=== PATIENT | male | born 1970 | race Two or more races ===

== ENCOUNTER 2016-04-08 09:24 | Emergency (ER) | payer MEDICAID ==
[~2016-04-08] VITALS: Ht 160 cm; Wt 77.1 kg
[~2016-04-08 09:24] MED LIST: AMOX-430 PO; ASCO500T9 PO; ASPI-869 PO; ATOR40TA PO; Acyclovir PO; Aspirin PO; CARV3.122 PO; Fluconazole PO; ISOS60TA4 PO; LACT1CAP72 PO; LEVO25TA9 PO; LISI2.5T2 PO; LISI5TAB45 PO; METO50TA7 PO; SEVE0.8P GT; SEVE800T PO; Zinc Sulfate PO
[2016-04-08 09:30] VITALS: BP 140/93
[2016-04-08] MEDS ORDERED: HYDROCODONE/APAP 10/325MG 1 EA TABLET ONE (09:42)
[2016-04-08] MEDS ORDERED: HYDROCODONE/APAP 10/325MG 1 EA TABLET PO ONE (10:00)
== END 2016-04-08 10:04 | disposition home or self-care (01) ==
LOC: ER 09:26
DX: N47.6 Balanoposthitis (principal); G89.29 Other chronic pain; M79.609 Pain in unspecified limb; I48.91 Unspecified atrial fibrillation; I12.0 Hypertensive chronic kidney disease with stage 5 chronic kidney disease or end stage renal disease; N18.6 End stage renal disease; Z79.82 Long term (current) use of aspirin; Z59.0 Homelessness; Z99.2 Dependence on renal dialysis
CPT/HCPCS: 99283; A4606; Z7610

== ENCOUNTER 2016-04-16 18:49 | Inpatient (IN) | payer MEDICAID ==
[~2016-04-16] VITALS: Ht 162.6 cm; Wt 73.0 kg
[2016-04-16] MEDS ORDERED: IV NS 0.9% 1,000 ML BAG IV ONE (19:30)
[2016-04-16] MEDS ORDERED: ONDANSETRON HCL/PF 4 MG/2 ML VIAL IVP ONE (19:30)
[2016-04-16] MEDS ORDERED: CEFTRIAXONE 1 G in IV D5W 50 ML IV ONE (19:30)
[2016-04-16] MEDS ORDERED: MORPHINE SULFATE INJ 2 MG/ML DISP.SYRIN IV ONE (19:30)
[2016-04-16 19:40] LABS: BASOPHILS # (AUTO) 0.2 /CMM (0.0-0.2); BASOPHILS % (AUTO) 3.3 % (0.0-2.0); DIFF TOTAL % 100 %; EOSINOPHILS # (AUTO) 0.1 /CMM (0.0-0.7); EOSINOPHILS % (AUTO) 1.2 % (0.0-6.0); HEMATOCRIT 37 % (39-51); HEMOGLOBIN 12.4 g/dL (13.5-17.5); LYMPHOCYTES # (AUTO) 0.7 /CMM (0.8-4.8); LYMPHOCYTES % (AUTO) 11.6 % (20.0-44.0); MEAN CORPUSCULAR HEMOGLOBIN 31 PG (26.0-33.0); MEAN CORPUSCULAR HGB CONC 33 g/dl (31.0-36.0); MEAN CORPUSCULAR VOLUME 94 fL (80-96); MONOCYTES # (AUTO) 0.5 /CMM (0.1-1.30); MONOCYTES % (AUTO) 9.1 % (2.0-12.0); NEUTROPHILS # (AUTO) 4.2 /CMM (1.8-8.9); NEUTROPHILS % (AUTO) 74.8 % (43.0-81.0); PLATELET COUNT (AUTO) 112 /CMM (150-450); RED BLOOD CELL COUNT(AUTO) 3.98 MIL/uL (4.5-6.0); WHITE BLOOD COUNT (AUTO) 5.7 K/uL (4.3-11.0)
[2016-04-16] MEDS ORDERED: IV NS 0.9% 1,000 ML ONE (19:40)
[2016-04-16] MEDS ORDERED: IV SET PRIMARY 1 EA INFUS.SET MC ONE (19:40)
[2016-04-16] MEDS ORDERED: MORPHINE SULFATE INJ 4 MG/ML DISP.SYRIN ONE (19:40)
[2016-04-16] MEDS ORDERED: IV SET PRIMARY PUMP SET 1 EA INFUS.SET MC ONE (19:40)
[2016-04-16] MEDS ORDERED: CEFTRIAXONE 1GM BAG (ER ONLY) 50 ML IV ONE (19:40)
[2016-04-16] MEDS ORDERED: ONDANSETRON HCL/PF 4 MG/2 ML VIAL ONE (19:40)
[2016-04-16 20:20] LABS: ALBUMIN 2.8 g/dL (3.4-5.0); BILIRUBIN,DIRECT 0.3 mg/dL (0.0-0.2); BILIRUBIN,TOTAL 0.7 mg/dL (0.2-1.0); CALCIUM, SERUM 9.9 mg/dL (8.5-10.1); CREATININE 7.1 mg/dL (0.6-1.3); INDIRECT BILIRUBIN 0.4 mg/dL (0.0-1.1); POTASSIUM 4.8 mmol/L (3.5-5.1); TOTAL PROTEIN, SERUM 6.8 g/dL (6.4-8.2)
[2016-04-16] MEDS ORDERED: MAGNESIUM HYDROXIDE 30 ML UDC PO PRN (20:30)
[2016-04-16] MEDS ORDERED: MAG HYDROX/AL HYDROX/SIMETH 30 ML UDC PO PRN (20:30)
[2016-04-16] MEDS ORDERED: ZOLPIDEM TARTRATE 5 MG TABLET PO PRN (20:30)
[2016-04-16] MEDS ORDERED: Z GUARD REMEDY 2 OZ OINT TP PRN (20:30)
[2016-04-16] MEDS ORDERED: [UNRECOGNIZED DRUG - OTHER] PO SCH (20:30)
[2016-04-16] MEDS ORDERED: ACETAMINOPHEN 325 MG TABLET PO PRN (20:30)
[2016-04-16] MEDS ORDERED: LINEZOLID RTU BAG 600 MG in PREMIX 1 EA IV ONE (21:00)
[2016-04-16] MEDS ORDERED: ACYCLOVIR PO SCH (21:00)
[2016-04-16 21:40] VITALS: BP 134/82
[2016-04-16] MEDS ORDERED: METOPROLOL SUCCINATE 50 MG TAB.SR.24H PO ONE (23:00)
[2016-04-16] MEDS ORDERED: PIPERACILLIN /TAZOBACTAM 3.375 G VIAL IV ONE (23:01)
[2016-04-16] MEDS ORDERED: IV D5W 50 ML IV ONE (23:03)
[2016-04-16] MEDS: METOPROLOL SUCCINATE 50 MG TAB.SR.24H PO SCH (23:09)
[2016-04-16] MEDS ORDERED: HYDROCODONE/APAP 5/325MG 1 EACH TABLET ONE (23:26)
[2016-04-16] MEDS ORDERED: IV NS 0.9% 250 ML IV ONE (23:41)
[2016-04-16] MEDS ORDERED: SECONDARY IV SET 1 EA INFUS.SET MC ONE (23:42)
[2016-04-16] MEDS: PIPERACILLIN /TAZOBACTAM 3.375 G in IV D5W 50 ML IV SCH (23:46)
[2016-04-17] MEDS: HYDROCODONE/APAP 5/325MG 1 EACH TABLET PO PRN ×2 (02:43→09:03)
[2016-04-17] MEDS ORDERED: IV D5W 50 ML IV ONE (04:17)
[2016-04-17] MEDS ORDERED: MORPHINE SULFATE INJ 2 MG/ML DISP.SYRIN ONE (04:17)
[2016-04-17] MEDS ORDERED: PIPERACILLIN /TAZOBACTAM 3.375 G VIAL IV ONE (04:17)
[2016-04-17] MEDS: MORPHINE SULFATE INJ 2 MG/ML DISP.SYRIN IV PRN ×4 (04:22→21:13)
[2016-04-17 04:39] VITALS: BP 98/85
[2016-04-17] MEDS: PIPERACILLIN /TAZOBACTAM 3.375 G in IV D5W 50 ML IV SCH ×3 (05:08→17:00)
[2016-04-17 07:01] LABS: BASOPHILS % (AUTO) 0.5 % (0.0-2.0); DIFF TOTAL % 100 %; EOSINOPHILS # (AUTO) 0.1 /CMM (0.0-0.7); EOSINOPHILS % (AUTO) 1.6 % (0.0-6.0); HEMATOCRIT 40 % (39-51); HEMOGLOBIN 13.1 g/dL (13.5-17.5); LYMPHOCYTES # (AUTO) 0.9 /CMM (0.8-4.8); MEAN CORPUSCULAR HEMOGLOBIN 31 PG (26.0-33.0); MEAN CORPUSCULAR HGB CONC 33 g/dl (31.0-36.0); MEAN CORPUSCULAR VOLUME 96 fL (80-96); MONOCYTES # (AUTO) 0.6 /CMM (0.1-1.30); MONOCYTES % (AUTO) 10.1 % (2.0-12.0); NEUTROPHILS # (AUTO) 4.4 /CMM (1.8-8.9); NEUTROPHILS % (AUTO) 72.8 % (43.0-81.0); PLATELET COUNT (AUTO) 141 /CMM (150-450); RED BLOOD CELL COUNT(AUTO) 4.19 MIL/uL (4.5-6.0); WHITE BLOOD COUNT (AUTO) 6.1 K/uL (4.3-11.0)
[2016-04-17 07:15] LABS: ALBUMIN 2.7 g/dL (3.4-5.0); BILIRUBIN,TOTAL 0.7 mg/dL (0.2-1.0); POTASSIUM 5.2 mmol/L (3.5-5.1); TOTAL PROTEIN, SERUM 6.7 g/dL (6.4-8.2)
[2016-04-17 07:17] LABS: CREATININE 7.6 mg/dL (0.6-1.3); PHOSPHORUS 8.2 mg/dL (2.5-4.9)
[2016-04-17 07:56] VITALS: BP 125/80
[2016-04-17] MEDS ORDERED: SEVELAMER CARBONATE 0.8 GM POWD.PACK GT SCH (08:00)
[2016-04-17] MEDS ORDERED: SEVELAMER CARBONATE 800 MG TABLET PO SCH (08:00)
[2016-04-17] MEDS ORDERED: LISINOPRIL (5MG) 5 MG TABLET PO SCH (09:00)
[2016-04-17] MEDS: ATORVASTATIN 40 MG TABLET PO SCH (09:00)
[2016-04-17] MEDS: ASPIRIN EC 325 MG TABLET.DR PO SCH (09:00)
[2016-04-17] MEDS: ISOSORBIDE MONONITRATE (30MG) 30 MG TAB.SR.24H PO SCH (09:00)
[2016-04-17] MEDS: LEVOTHYROXINE SODIUM 25 MCG TABLET PO SCH (09:00)
[2016-04-17] MEDS: LACTOBACILLUS RHAMNOSUS GG 1 EACH CAP.SPRINK PO SCH ×2 (09:00→16:59)
[2016-04-17] MEDS: ZINC SULFATE 220 MG CAPSULE PO SCH (09:00)
[2016-04-17] MEDS: PANTOPRAZOLE 40 MG TABLET.DR PO SCH (09:01)
[2016-04-17] MEDS: ASCORBIC ACID 500 MG TABLET PO SCH (09:01)
[2016-04-17] MEDS: LISINOPRIL (5MG) 5 MG TABLET PO SCH (09:02)
[2016-04-17] MEDS: CARVEDILOL 3.125 MG TABLET PO SCH ×2 (09:02→16:25)
[2016-04-17] MEDS: ASPIRIN 325 MG TABLET PO SCH (09:05)
[2016-04-17] MEDS: LINEZOLID RTU BAG 600 MG in PREMIX 1 EA IV SCH ×2 (10:04→21:02)
[2016-04-17] MEDS: ONDANSETRON HCL/PF 4 MG/2 ML VIAL IVP PRN (12:18)
[2016-04-17] MEDS: SEVELAMER CARBONATE 0.8 GM POWD.PACK PO SCH ×2 (12:19→16:59)
[2016-04-17] MEDS ORDERED: DOSE PER PHARMACY MICAFUNGIN 1 EA XX PRN (14:30)
[2016-04-17] MEDS ORDERED: SECONDARY IV SET 1 EA INFUS.SET MC ONE ×2 (15:57→21:05)
[2016-04-17] MEDS: MICAFUNGIN SODIUM 100 MG in IV NS 0.9% 100 ML IV SCH (16:00)
[2016-04-17 16:45] VITALS: BP 120/83
[2016-04-17 20:00] VITALS: BP 135/80
[2016-04-17] MEDS: METOPROLOL SUCCINATE 50 MG TAB.SR.24H PO SCH (21:02)
[2016-04-18] MEDS: PIPERACILLIN /TAZOBACTAM 3.375 G in IV D5W 50 ML IV SCH ×4 (00:17→17:52)
[2016-04-18] MEDS: MORPHINE SULFATE INJ 2 MG/ML DISP.SYRIN IV PRN ×4 (03:40→17:52)
[2016-04-18 06:52] LABS: BASOPHILS # (AUTO) 0.1 /CMM (0.0-0.2); BASOPHILS % (AUTO) 1.1 % (0.0-2.0); DIFF TOTAL % 100 %; EOSINOPHILS # (AUTO) 0.3 /CMM (0.0-0.7); EOSINOPHILS % (AUTO) 4.5 % (0.0-6.0); HEMATOCRIT 37 % (39-51); HEMOGLOBIN 12.4 g/dL (13.5-17.5); LYMPHOCYTES # (AUTO) 0.7 /CMM (0.8-4.8); LYMPHOCYTES % (AUTO) 11.2 % (20.0-44.0); MEAN CORPUSCULAR HEMOGLOBIN 31 PG (26.0-33.0); MEAN CORPUSCULAR HGB CONC 34 g/dl (31.0-36.0); MEAN CORPUSCULAR VOLUME 93 fL (80-96); MONOCYTES # (AUTO) 1.1 /CMM (0.1-1.30); MONOCYTES % (AUTO) 17.8 % (2.0-12.0); NEUTROPHILS # (AUTO) 4.1 /CMM (1.8-8.9); NEUTROPHILS % (AUTO) 65.4 % (43.0-81.0); PLATELET COUNT (AUTO) 121 /CMM (150-450); RED BLOOD CELL COUNT(AUTO) 3.96 MIL/uL (4.5-6.0); WHITE BLOOD COUNT (AUTO) 6.3 K/uL (4.3-11.0)
[2016-04-18 07:27] LABS: CALCIUM, SERUM 9.2 mg/dL (8.5-10.1); CREATININE 6.6 mg/dL (0.6-1.3); PHOSPHORUS 6.7 mg/dL (2.5-4.9); POTASSIUM 5.2 mmol/L (3.5-5.1)
[2016-04-18 07:49] LABS: ANISOCYTOSIS 1+; BAND % (MANUAL) 2 % (0.0-5.0); EOSINOPHILS % (MANUAL) 3 % (0-4); LYMPHOCYTES % (MANUAL) 14 % (16-48); PLATELET ESTIMATE DECREASED
[2016-04-18 07:50] LABS: HYPOCHROMASIA 1+; OVALOCYTES SLT
[2016-04-18 08:00] VITALS: BP 103/78
[2016-04-18] MEDS: LINEZOLID RTU BAG 600 MG in PREMIX 1 EA IV SCH (08:22)
[2016-04-18] MEDS: ATORVASTATIN 40 MG TABLET PO SCH (08:23)
[2016-04-18] MEDS: ASPIRIN EC 325 MG TABLET.DR PO SCH (08:23)
[2016-04-18] MEDS: SEVELAMER CARBONATE 0.8 GM POWD.PACK PO SCH ×3 (08:23→16:50)
[2016-04-18] MEDS: PANTOPRAZOLE 40 MG TABLET.DR PO SCH (08:23)
[2016-04-18] MEDS: LEVOTHYROXINE SODIUM 25 MCG TABLET PO SCH (08:23)
[2016-04-18] MEDS: ASCORBIC ACID 500 MG TABLET PO SCH (08:23)
[2016-04-18] MEDS: LACTOBACILLUS RHAMNOSUS GG 1 EACH CAP.SPRINK PO SCH ×2 (08:23→16:50)
[2016-04-18] MEDS: ZINC SULFATE 220 MG CAPSULE PO SCH (08:23)
[2016-04-18] MEDS: ONDANSETRON HCL/PF 4 MG/2 ML VIAL IVP PRN (08:24)
[2016-04-18] MEDS: CARVEDILOL 3.125 MG TABLET PO SCH ×2 (08:25→16:51)
[2016-04-18] MEDS: LISINOPRIL (5MG) 5 MG TABLET PO SCH (08:25)
[2016-04-18] MEDS: ISOSORBIDE MONONITRATE (30MG) 30 MG TAB.SR.24H PO SCH (08:25)
[2016-04-18] MEDS: ASPIRIN 325 MG TABLET PO SCH (08:26)
[2016-04-18 16:00] VITALS: BP 117/78
[2016-04-18] MEDS: MICAFUNGIN SODIUM 100 MG in IV NS 0.9% 100 ML IV SCH (16:50)
[2016-04-18 20:00] VITALS: BP 111/83
[2016-04-18] MEDS: LINEZOLID 600 MG TABLET PO SCH (21:15)
[2016-04-18] MEDS: METOPROLOL SUCCINATE 50 MG TAB.SR.24H PO SCH (21:15)
[2016-04-18] MEDS: CLOTRIMAZOLE 1% 15 GM TUBE TP SCH (21:16)
[2016-04-18] MEDS: HYDROCODONE/APAP 5/325MG 1 EACH TABLET PO PRN (21:21)
[2016-04-19] MEDS: PIPERACILLIN /TAZOBACTAM 3.375 G in IV D5W 50 ML IV SCH ×5 (00:41→23:49)
[2016-04-19] MEDS: MORPHINE SULFATE INJ 2 MG/ML DISP.SYRIN IV PRN ×4 (00:47→23:49)
[2016-04-19 07:17] LABS: CALCIUM, SERUM 8.7 mg/dL (8.5-10.1); PHOSPHORUS 7.4 mg/dL (2.5-4.9); POTASSIUM 5.1 mmol/L (3.5-5.1)
[2016-04-19 07:40] LABS: BASOPHILS % (AUTO) 0.8 % (0.0-2.0); DIFF TOTAL % 100 %; EOSINOPHILS # (AUTO) 0.2 /CMM (0.0-0.7); EOSINOPHILS % (AUTO) 4.1 % (0.0-6.0); HEMATOCRIT 37 % (39-51); HEMOGLOBIN 12.1 g/dL (13.5-17.5); LYMPHOCYTES # (AUTO) 0.7 /CMM (0.8-4.8); LYMPHOCYTES % (AUTO) 13.6 % (20.0-44.0); MEAN CORPUSCULAR HEMOGLOBIN 31 PG (26.0-33.0); MEAN CORPUSCULAR HGB CONC 33 g/dl (31.0-36.0); MEAN CORPUSCULAR VOLUME 94 fL (80-96); MONOCYTES # (AUTO) 0.9 /CMM (0.1-1.30); MONOCYTES % (AUTO) 16.9 % (2.0-12.0); NEUTROPHILS # (AUTO) 3.5 /CMM (1.8-8.9); NEUTROPHILS % (AUTO) 64.6 % (43.0-81.0); PLATELET COUNT (AUTO) 132 /CMM (150-450); WHITE BLOOD COUNT (AUTO) 5.4 K/uL (4.3-11.0)
[2016-04-19] MEDS: PANTOPRAZOLE 40 MG TABLET.DR PO SCH (07:54)
[2016-04-19] MEDS: ATORVASTATIN 40 MG TABLET PO SCH (07:54)
[2016-04-19] MEDS: ZINC SULFATE 220 MG CAPSULE PO SCH (07:54)
[2016-04-19] MEDS: SEVELAMER CARBONATE 0.8 GM POWD.PACK PO SCH ×3 (07:54→17:02)
[2016-04-19] MEDS: LINEZOLID 600 MG TABLET PO SCH ×2 (07:54→20:50)
[2016-04-19] MEDS: ASPIRIN EC 325 MG TABLET.DR PO SCH (07:54)
[2016-04-19] MEDS: ASCORBIC ACID 500 MG TABLET PO SCH (07:54)
[2016-04-19] MEDS: LEVOTHYROXINE SODIUM 25 MCG TABLET PO SCH (07:54)
[2016-04-19] MEDS: LACTOBACILLUS RHAMNOSUS GG 1 EACH CAP.SPRINK PO SCH ×2 (07:54→17:00)
[2016-04-19] MEDS: ASPIRIN 325 MG TABLET PO SCH (07:55)
[2016-04-19] MEDS: CARVEDILOL 3.125 MG TABLET PO SCH ×2 (07:55→17:00)
[2016-04-19] MEDS: LISINOPRIL (5MG) 5 MG TABLET PO SCH (07:56)
[2016-04-19] MEDS: CLOTRIMAZOLE 1% 15 GM TUBE TP SCH ×2 (07:56→17:02)
[2016-04-19] MEDS: ISOSORBIDE MONONITRATE (30MG) 30 MG TAB.SR.24H PO SCH (07:56)
[2016-04-19] MEDS: ONDANSETRON HCL/PF 4 MG/2 ML VIAL IVP PRN (07:57)
[2016-04-19 08:00] VITALS: BP 127/84
[2016-04-19 10:21] LABS: ANISOCYTOSIS 3+; EOSINOPHILS % (MANUAL) 4 % (0-4); LYMPHOCYTES % (MANUAL) 26 % (16-48); OVALOCYTES 2+; PLATELET ESTIMATE DECREASED; SCHISTOCYTES 1+
[2016-04-19 16:00] VITALS: BP 118/82
[2016-04-19] MEDS: MICAFUNGIN SODIUM 100 MG in IV NS 0.9% 100 ML IV SCH (17:02)
[2016-04-19] MEDS ORDERED: SECONDARY IV SET 1 EA INFUS.SET MC ONE ×2 (17:09→23:48)
[2016-04-19 20:00] VITALS: BP 144/90
[2016-04-19] MEDS: METOPROLOL SUCCINATE 50 MG TAB.SR.24H PO SCH (20:49)
[2016-04-19] MEDS: HYDROCODONE/APAP 5/325MG 1 EACH TABLET PO PRN (20:50)
[2016-04-20] MEDS: MORPHINE SULFATE INJ 2 MG/ML DISP.SYRIN IV PRN ×3 (05:35→22:31)
[2016-04-20] MEDS: PIPERACILLIN /TAZOBACTAM 3.375 G in IV D5W 50 ML IV SCH ×3 (05:35→18:09)
[2016-04-20 08:00] VITALS: BP 141/106
[2016-04-20] MEDS: LINEZOLID 600 MG TABLET PO SCH ×2 (08:10→20:12)
[2016-04-20] MEDS: ASCORBIC ACID 500 MG TABLET PO SCH (08:10)
[2016-04-20] MEDS: ZINC SULFATE 220 MG CAPSULE PO SCH (08:10)
[2016-04-20] MEDS: PANTOPRAZOLE 40 MG TABLET.DR PO SCH (08:10)
[2016-04-20] MEDS: SEVELAMER CARBONATE 0.8 GM POWD.PACK PO SCH ×3 (08:10→18:01)
[2016-04-20] MEDS: LACTOBACILLUS RHAMNOSUS GG 1 EACH CAP.SPRINK PO SCH ×2 (08:10→17:58)
[2016-04-20] MEDS: ISOSORBIDE MONONITRATE (30MG) 30 MG TAB.SR.24H PO SCH (08:11)
[2016-04-20] MEDS: LEVOTHYROXINE SODIUM 25 MCG TABLET PO SCH (08:11)
[2016-04-20] MEDS: ATORVASTATIN 40 MG TABLET PO SCH (08:11)
[2016-04-20] MEDS: CARVEDILOL 3.125 MG TABLET PO SCH ×2 (08:12→17:58)
[2016-04-20] MEDS: ASPIRIN 325 MG TABLET PO SCH (08:12)
[2016-04-20] MEDS: LISINOPRIL (5MG) 5 MG TABLET PO SCH (08:12)
[2016-04-20] MEDS: CLOTRIMAZOLE 1% 15 GM TUBE TP SCH ×2 (08:13→18:01)
[2016-04-20] MEDS: ASPIRIN EC 325 MG TABLET.DR PO SCH (08:20)
[2016-04-20 16:00] VITALS: BP 124/78
[2016-04-20] MEDS: MICAFUNGIN SODIUM 100 MG in IV NS 0.9% 100 ML IV SCH (17:58)
[2016-04-20 20:00] VITALS: BP 129/79
[2016-04-20 20:06] VITALS: BP 129/79
[2016-04-20] MEDS: METOPROLOL SUCCINATE 50 MG TAB.SR.24H PO SCH (20:12)
[2016-04-21] MEDS: PIPERACILLIN /TAZOBACTAM 3.375 G in IV D5W 50 ML IV SCH ×3 (00:23→11:37)
[2016-04-21] MEDS: MORPHINE SULFATE INJ 2 MG/ML DISP.SYRIN IV PRN ×4 (03:07→23:52)
[2016-04-21] MEDS: ONDANSETRON HCL/PF 4 MG/2 ML VIAL IVP PRN (03:32)
[2016-04-21] MEDS: PANTOPRAZOLE 40 MG TABLET.DR PO SCH (06:46)
[2016-04-21] MEDS: LEVOTHYROXINE SODIUM 25 MCG TABLET PO SCH ×2 (06:46→09:22)
[2016-04-21 08:00] VITALS: BP 138/82
[2016-04-21] MEDS: ISOSORBIDE MONONITRATE (30MG) 30 MG TAB.SR.24H PO SCH (09:00)
[2016-04-21] MEDS: CARVEDILOL 3.125 MG TABLET PO SCH ×2 (09:00→16:28)
[2016-04-21] MEDS: LISINOPRIL (5MG) 5 MG TABLET PO SCH (09:00)
[2016-04-21] MEDS: CLOTRIMAZOLE 1% 15 GM TUBE TP SCH ×2 (09:00→16:29)
[2016-04-21] MEDS: LACTOBACILLUS RHAMNOSUS GG 1 EACH CAP.SPRINK PO SCH ×2 (09:21→16:27)
[2016-04-21] MEDS: ASPIRIN EC 325 MG TABLET.DR PO SCH (09:22)
[2016-04-21] MEDS: ZINC SULFATE 220 MG CAPSULE PO SCH (09:22)
[2016-04-21] MEDS: LINEZOLID 600 MG TABLET PO SCH (09:23)
[2016-04-21] MEDS: ASCORBIC ACID 500 MG TABLET PO SCH (09:23)
[2016-04-21] MEDS: ASPIRIN 325 MG TABLET PO SCH (09:23)
[2016-04-21] MEDS: SEVELAMER CARBONATE 0.8 GM POWD.PACK PO SCH ×3 (09:23→16:47)
[2016-04-21] MEDS: ATORVASTATIN 40 MG TABLET PO SCH (09:23)
[2016-04-21] MEDS: HYDROCODONE/APAP 5/325MG 1 EACH TABLET PO PRN (11:31)
[2016-04-21] MEDS ORDERED: IV SET PRIMARY PUMP SET 1 EA INFUS.SET MC ONE (11:36)
[2016-04-21 16:00] VITALS: BP 122/76
[2016-04-21] MEDS ORDERED: SECONDARY IV SET 1 EA INFUS.SET MC ONE (16:15)
[2016-04-21] MEDS: MICAFUNGIN SODIUM 100 MG in IV NS 0.9% 100 ML IV SCH (16:28)
[2016-04-21] MEDS ORDERED: FEE PK DOSING 1 MIN EA MC ONE (18:55)
[2016-04-21] MEDS ORDERED: VANCOMYCIN 1 GM in IV D5W 250 ML IV ONE (19:30)
[2016-04-21 20:00] VITALS: BP 133/86
[2016-04-21] MEDS: METOPROLOL SUCCINATE 50 MG TAB.SR.24H PO SCH (20:27)
[2016-04-21 21:00] VITALS: BP 133/86
[2016-04-22] MEDS: MORPHINE SULFATE INJ 2 MG/ML DISP.SYRIN IV PRN ×2 (05:59→16:26)
[2016-04-22 06:44] LABS: BASOPHILS % (AUTO) 0.6 % (0.0-2.0); DIFF TOTAL % 100 %; EOSINOPHILS # (AUTO) 0.2 /CMM (0.0-0.7); EOSINOPHILS % (AUTO) 3.6 % (0.0-6.0); HEMATOCRIT 39 % (39-51); HEMOGLOBIN 12.7 g/dL (13.5-17.5); LYMPHOCYTES # (AUTO) 0.8 /CMM (0.8-4.8); LYMPHOCYTES % (AUTO) 14.3 % (20.0-44.0); MEAN CORPUSCULAR HEMOGLOBIN 31 PG (26.0-33.0); MEAN CORPUSCULAR HGB CONC 33 g/dl (31.0-36.0); MEAN CORPUSCULAR VOLUME 94 fL (80-96); MONOCYTES # (AUTO) 0.4 /CMM (0.1-1.30); MONOCYTES % (AUTO) 7.5 % (2.0-12.0); NEUTROPHILS # (AUTO) 4.2 /CMM (1.8-8.9); PLATELET COUNT (AUTO) 133 /CMM (150-450); RED BLOOD CELL COUNT(AUTO) 4.11 MIL/uL (4.5-6.0); WHITE BLOOD COUNT (AUTO) 5.7 K/uL (4.3-11.0)
[2016-04-22 07:06] LABS: CALCIUM, SERUM 9.1 mg/dL (8.5-10.1); POTASSIUM 4.9 mmol/L (3.5-5.1)
[2016-04-22 07:34] LABS: CREATININE 7.9 mg/dL (0.6-1.3); PHOSPHORUS 8.6 mg/dL (2.5-4.9)
[2016-04-22 08:00] VITALS: BP 149/87
[2016-04-22] MEDS: ISOSORBIDE MONONITRATE (30MG) 30 MG TAB.SR.24H PO SCH (08:19)
[2016-04-22] MEDS: ZINC SULFATE 220 MG CAPSULE PO SCH (08:20)
[2016-04-22] MEDS: ASPIRIN 325 MG TABLET PO SCH (08:20)
[2016-04-22] MEDS: SEVELAMER CARBONATE 0.8 GM POWD.PACK PO SCH ×3 (08:20→16:24)
[2016-04-22] MEDS: LACTOBACILLUS RHAMNOSUS GG 1 EACH CAP.SPRINK PO SCH ×2 (08:20→16:21)
[2016-04-22] MEDS: ATORVASTATIN 40 MG TABLET PO SCH (08:21)
[2016-04-22] MEDS: ASPIRIN EC 325 MG TABLET.DR PO SCH (08:21)
[2016-04-22] MEDS: PANTOPRAZOLE 40 MG TABLET.DR PO SCH (08:21)
[2016-04-22] MEDS: CARVEDILOL 3.125 MG TABLET PO SCH ×2 (08:21→16:22)
[2016-04-22] MEDS: ASCORBIC ACID 500 MG TABLET PO SCH (08:21)
[2016-04-22] MEDS: LISINOPRIL (5MG) 5 MG TABLET PO SCH (08:22)
[2016-04-22] MEDS: HYDROCODONE/APAP 5/325MG 1 EACH TABLET PO PRN ×2 (08:24→12:32)
[2016-04-22] MEDS: CLOTRIMAZOLE 1% 15 GM TUBE TP SCH ×2 (08:25→17:48)
[2016-04-22 16:12] VITALS: BP 121/83
[2016-04-22] MEDS: MICAFUNGIN SODIUM 100 MG in IV NS 0.9% 100 ML IV SCH (16:46)
[2016-04-22 20:00] VITALS: BP 132/93
[2016-04-23] MEDS: METOPROLOL SUCCINATE 50 MG TAB.SR.24H PO SCH ×2 (00:32→19:53)
[2016-04-23] MEDS: VANCOMYCIN 500 MG in IV D5W 100 ML IV PRN (00:33)
[2016-04-23] MEDS: MORPHINE SULFATE INJ 2 MG/ML DISP.SYRIN IV PRN ×2 (00:39→19:53)
[2016-04-23] MEDS: PANTOPRAZOLE 40 MG TABLET.DR PO SCH (07:26)
[2016-04-23] MEDS: LEVOTHYROXINE SODIUM 25 MCG TABLET PO SCH (07:27)
[2016-04-23 08:00] VITALS: BP 133/92
[2016-04-23] MEDS: LACTOBACILLUS RHAMNOSUS GG 1 EACH CAP.SPRINK PO SCH ×2 (09:53→17:46)
[2016-04-23] MEDS: ZINC SULFATE 220 MG CAPSULE PO SCH (09:53)
[2016-04-23] MEDS: LISINOPRIL (5MG) 5 MG TABLET PO SCH (09:53)
[2016-04-23] MEDS: ATORVASTATIN 40 MG TABLET PO SCH (09:53)
[2016-04-23] MEDS: ISOSORBIDE MONONITRATE (30MG) 30 MG TAB.SR.24H PO SCH (09:55)
[2016-04-23] MEDS: CARVEDILOL 3.125 MG TABLET PO SCH ×2 (09:55→17:46)
[2016-04-23] MEDS: SEVELAMER CARBONATE 0.8 GM POWD.PACK PO SCH ×3 (09:55→17:46)
[2016-04-23] MEDS: ASPIRIN EC 325 MG TABLET.DR PO SCH (09:55)
[2016-04-23] MEDS: ASCORBIC ACID 500 MG TABLET PO SCH (09:55)
[2016-04-23] MEDS: ASPIRIN 325 MG TABLET PO SCH (09:55)
[2016-04-23] MEDS: CLOTRIMAZOLE 1% 15 GM TUBE TP SCH ×2 (10:00→17:49)
[2016-04-23] MEDS: HYDROCODONE/APAP 5/325MG 1 EACH TABLET PO PRN (11:54)
[2016-04-23] MEDS: MICAFUNGIN SODIUM 100 MG in IV NS 0.9% 100 ML IV SCH (15:08)
[2016-04-23 16:00] VITALS: BP 122/79
[2016-04-23] MEDS: ONDANSETRON HCL/PF 4 MG/2 ML VIAL IVP PRN (17:46)
[2016-04-23 20:00] VITALS: BP_SYST 132; BP_SYST 138; BP_DIAS 98
[2016-04-24] MEDS: MORPHINE SULFATE INJ 2 MG/ML DISP.SYRIN IV PRN ×5 (00:01→20:12)
[2016-04-24] MEDS: HYDROCODONE/APAP 5/325MG 1 EACH TABLET PO PRN ×2 (01:34→12:17)
[2016-04-24] MEDS ORDERED: HYDROMORPHONE 1 MG/1 ML DISP.SYRIN IV PRN (02:00)
[2016-04-24] MEDS: ONDANSETRON HCL/PF 4 MG/2 ML VIAL IVP PRN ×3 (04:04→18:19)
[2016-04-24] MEDS ORDERED: HYDROMORPHONE 1 MG/1 ML DISP.SYRIN ONE (06:22)
[2016-04-24 08:00] VITALS: BP 125/85
[2016-04-24] MEDS: LACTOBACILLUS RHAMNOSUS GG 1 EACH CAP.SPRINK PO SCH ×2 (08:02→18:05)
[2016-04-24] MEDS: ZINC SULFATE 220 MG CAPSULE PO SCH (08:02)
[2016-04-24] MEDS: ATORVASTATIN 40 MG TABLET PO SCH (08:02)
[2016-04-24] MEDS: ASPIRIN 325 MG TABLET PO SCH (08:02)
[2016-04-24] MEDS: ASPIRIN EC 325 MG TABLET.DR PO SCH (08:02)
[2016-04-24] MEDS: PANTOPRAZOLE 40 MG TABLET.DR PO SCH (08:02)
[2016-04-24] MEDS: ASCORBIC ACID 500 MG TABLET PO SCH (08:02)
[2016-04-24] MEDS: SEVELAMER CARBONATE 0.8 GM POWD.PACK PO SCH ×3 (08:03→18:06)
[2016-04-24] MEDS: LEVOTHYROXINE SODIUM 25 MCG TABLET PO SCH (08:03)
[2016-04-24] MEDS: CLOTRIMAZOLE 1% 15 GM TUBE TP SCH ×2 (08:08→18:06)
[2016-04-24 08:35] LABS: BASOPHILS # (AUTO) 0.1 /CMM (0.0-0.2); BASOPHILS % (AUTO) 0.8 % (0.0-2.0); DIFF TOTAL % 100 %; EOSINOPHILS # (AUTO) 0.1 /CMM (0.0-0.7); EOSINOPHILS % (AUTO) 1.5 % (0.0-6.0); HEMATOCRIT 41 % (39-51); HEMOGLOBIN 13.4 g/dL (13.5-17.5); LYMPHOCYTES # (AUTO) 1.3 /CMM (0.8-4.8); LYMPHOCYTES % (AUTO) 18.9 % (20.0-44.0); MEAN CORPUSCULAR HEMOGLOBIN 31 PG (26.0-33.0); MEAN CORPUSCULAR HGB CONC 33 g/dl (31.0-36.0); MEAN CORPUSCULAR VOLUME 95 fL (80-96); MONOCYTES # (AUTO) 0.6 /CMM (0.1-1.30); MONOCYTES % (AUTO) 7.9 % (2.0-12.0); NEUTROPHILS # (AUTO) 5.1 /CMM (1.8-8.9); NEUTROPHILS % (AUTO) 70.9 % (43.0-81.0); PLATELET COUNT (AUTO) 152 /CMM (150-450); RED BLOOD CELL COUNT(AUTO) 4.27 MIL/uL (4.5-6.0); WHITE BLOOD COUNT (AUTO) 7.1 K/uL (4.3-11.0)
[2016-04-24 08:42] LABS: CALCIUM, SERUM 9.5 mg/dL (8.5-10.1); POTASSIUM 5.6 mmol/L (3.5-5.1)
[2016-04-24 08:43] LABS: CREATININE 9.2 mg/dL (0.6-1.3); PHOSPHORUS 9.4 mg/dL (2.5-4.9)
[2016-04-24] MEDS: ISOSORBIDE MONONITRATE (30MG) 30 MG TAB.SR.24H PO SCH (09:00)
[2016-04-24] MEDS: LISINOPRIL (5MG) 5 MG TABLET PO SCH (09:00)
[2016-04-24] MEDS: CARVEDILOL 3.125 MG TABLET PO SCH ×2 (09:00→17:00)
[2016-04-24] MEDS ORDERED: SODIUM POLYSTYRENE SULFONATE 15 G/60 ML BOTTLE PO ONE (12:00)
[2016-04-24] MEDS: MICAFUNGIN SODIUM 100 MG in IV NS 0.9% 100 ML IV SCH (15:17)
[2016-04-24 16:00] VITALS: BP 138/91
[2016-04-24 19:39] VITALS: BP 130/106
[2016-04-24 20:00] VITALS: BP 131/106
[2016-04-24] MEDS: METOPROLOL SUCCINATE 50 MG TAB.SR.24H PO SCH (20:12)
[2016-04-24 21:24] VITALS: BP 136/96
[2016-04-25] MEDS: MORPHINE SULFATE INJ 2 MG/ML DISP.SYRIN IV PRN ×2 (00:11→10:15)
[2016-04-25 07:25] VITALS: BP 146/96
[2016-04-25] MEDS: CLOTRIMAZOLE 1% 15 GM TUBE TP SCH (08:07)
[2016-04-25] MEDS: PANTOPRAZOLE 40 MG TABLET.DR PO SCH (08:08)
[2016-04-25] MEDS: ASPIRIN 325 MG TABLET PO SCH (08:08)
[2016-04-25] MEDS: ASCORBIC ACID 500 MG TABLET PO SCH (08:08)
[2016-04-25] MEDS: ASPIRIN EC 325 MG TABLET.DR PO SCH (08:08)
[2016-04-25] MEDS: LACTOBACILLUS RHAMNOSUS GG 1 EACH CAP.SPRINK PO SCH (08:08)
[2016-04-25] MEDS: SEVELAMER CARBONATE 0.8 GM POWD.PACK PO SCH ×2 (08:08→12:32)
[2016-04-25] MEDS: ATORVASTATIN 40 MG TABLET PO SCH (08:08)
[2016-04-25] MEDS: CARVEDILOL 3.125 MG TABLET PO SCH (08:08)
[2016-04-25] MEDS: LEVOTHYROXINE SODIUM 25 MCG TABLET PO SCH (08:08)
[2016-04-25] MEDS: ZINC SULFATE 220 MG CAPSULE PO SCH (08:08)
[2016-04-25] MEDS: ISOSORBIDE MONONITRATE (30MG) 30 MG TAB.SR.24H PO SCH (08:09)
[2016-04-25] MEDS: LISINOPRIL (5MG) 5 MG TABLET PO SCH (08:09)
[2016-04-25] MEDS: HYDROCODONE/APAP 5/325MG 1 EACH TABLET PO PRN (13:05)
[2016-04-25] MEDS: VANCOMYCIN 500 MG in IV D5W 100 ML IV PRN (14:57)
[2016-04-25 16:00] VITALS: BP 153/104
== END 2016-04-25 16:30 | disposition short-term general hospital (02) | DRG 501 ==
LOC: ER 18:51 → MEDSG2 21:10
PROVIDERS: ADMIT Family Medicine; ATTEND Family Medicine
PROC: 5A1D60Z (ICD-10-PCS; principal; 2016-04-17)
DX: N48.1 Balanitis (principal); E43 Unspecified severe protein-calorie malnutrition; I13.2 Hypertensive heart and chronic kidney disease with heart failure and with stage 5 chronic kidney disease, or end stage renal disease; N18.6 End stage renal disease; I42.9 Cardiomyopathy, unspecified; D69.6 Thrombocytopenia, unspecified; E11.22 Type 2 diabetes mellitus with diabetic chronic kidney disease; I50.22 Chronic systolic (congestive) heart failure; I48.91 Unspecified atrial fibrillation; Z99.2 Dependence on renal dialysis; Z59.0 Homelessness; I48.2 Chronic atrial fibrillation; E78.5 Hyperlipidemia, unspecified; D63.8 Anemia in other chronic diseases classified elsewhere; E87.5 Hyperkalemia; E83.39 Other disorders of phosphorus metabolism; Z91.19 Patient's noncompliance with other medical treatment and regimen; E03.9 Hypothyroidism, unspecified; E11.42 Type 2 diabetes mellitus with diabetic polyneuropathy; L29.9 Pruritus, unspecified; Z68.27 Body mass index [BMI] 27.0-27.9, adult
CPT/HCPCS: 36415; 71010-TC; 80048-TC; 80053-TC; 80076-TC; 80202-TC; 83735-TC; 84100-TC; 85025-TC; 87040-TC; 87070-TC; 87081-TC; 87186-TC; 90935-TC; 97001-TC; A4216; A4606; A6402; J0696; J1170; J2020; J2248; J2270; J2405; J2543; J3370; J7030; J7050; J7060; Z7610